=== PATIENT | male | born 1995 | race Caucasian/White ===

== ENCOUNTER 2017-10-11 15:34 | Emergency (ER) | payer MEDICAID ==
[2017-10-11 16:27] LABS: BASOPHILS 0.1 % (0-2); EOSINOPHILS 0.6 % (0-7); HEMATOCRIT 41.8 % (42.0-54.0); HEMOGLOBIN 14.5 g/dL (13.5-17.5); IMMATURE GRANULOCYTES 0.2 % (0-5); LYMPHOCYTES 15.3 % (15-50); MCHC 34.7 g/dL (31.0-37.0); MEAN PLATELET VOLUME 10.8 fL (7.4-10.4); MONOCYTES 6.9 % (2-11); NEUTROPHILS 76.9 % (40-80); PLATELET COUNT 191 10x3/uL (130-400); RDW 12.1 % (11.5-14.5)
[2017-10-11 16:51] LABS: ALBUMIN 4.4 g/dL (3.4-5.0); ALKALINE PHOSPHATASE 58 U/L (46-116); ALT (SGPT) 13 U/L (10-68); CALC OSMOLALITY 280 mosm/kg (275-300); CALCIUM 9.1 mg/dL (8.5-10.1); CARBON DIOXIDE 26.8 mmol/L (21.0-32.0); CHLORIDE - SERUM 104 mmol/L (98-107); CREATININE - SERUM 0.8 mg/dL (0.6-1.3); GLUCOSE 88 mg/dL (74-106); MAGNESIUM - SERUM 2.1 mg/dL (1.8-2.4); POTASSIUM - SERUM 3.9 mmol/L (3.5-5.1); SODIUM 142 mmol/L (136-145); UREA NITROGEN 11 mg/dL (7-18); eGFR NON AFRICAN AMERICAN > 90 mL/min (90-120)
== END 2017-10-11 18:09 | disposition home or self-care (01) ==
LOC: D.ER 15:34
PROVIDERS: Nurse Practitioner Family
DX: G40.909 Epilepsy, unspecified, not intractable, without status epilepticus (principal); Z91.14 Patient's other noncompliance with medication regimen

== ENCOUNTER 2018-01-08 15:20 | Emergency (ER) | payer MEDICAID ==
[2018-01-08 16:20] LABS: BASOPHILS 0.1 % (0-2); EOSINOPHILS 0.4 % (0-7); HEMATOCRIT 37.9 % (42.0-54.0); HEMOGLOBIN 13.1 g/dL (13.5-17.5); IMMATURE GRANULOCYTES 0.2 % (0-5); LYMPHOCYTES 16.9 % (15-50); MCH 32.4 pg (26.0-34.0); MCHC 34.6 g/dL (31.0-37.0); MCV 93.8 fL (80.0-100.0); MEAN PLATELET VOLUME 10.8 fL (7.4-10.4); MONOCYTES 8.5 % (2-11); NEUTROPHILS 73.9 % (40-80); PLATELET COUNT 220 10x3/uL (130-400); RBC 4.04 10x6/uL (4.20-6.10); RDW 11.9 % (11.5-14.5); WBC 9.2 10x3/uL (4.8-10.8)
[2018-01-08 16:28] LABS: INR 1.11 (0.85-1.17); PROTIME 13.9 SECONDS (11.6-15.0)
[2018-01-08 16:33] LABS: ALKALINE PHOSPHATASE 52 U/L (46-116); ALT (SGPT) 20 U/L (10-68); CALC OSMOLALITY 277 mosm/kg (275-300); CALCIUM 8.9 mg/dL (8.5-10.1); CHLORIDE - SERUM 105 mmol/L (98-107); CREATININE - SERUM 0.7 mg/dL (0.6-1.3); GLUCOSE 78 mg/dL (74-106); POTASSIUM - SERUM 3.6 mmol/L (3.5-5.1); PROTEIN - SERUM 6.7 g/dL (6.4-8.2); SODIUM 141 mmol/L (136-145); UREA NITROGEN 8 mg/dL (7-18); eGFR NON AFRICAN AMERICAN > 90 mL/min (90-120)
[2018-01-08 16:53] LABS: CKMB 2.2 U/L (0.0-3.6); CREATINE KINASE 420 UL (21-232); MAGNESIUM - SERUM 1.8 mg/dL (1.8-2.4)
== END 2018-01-08 19:44 | disposition home or self-care (01) ==
LOC: D.ER 15:20
PROVIDERS: Family Medicine; Nurse Practitioner Family
DX: G40.909 Epilepsy, unspecified, not intractable, without status epilepticus (principal); Z91.14 Patient's other noncompliance with medication regimen; I45.10 Unspecified right bundle-branch block